=== PATIENT | male | born 1950 | race Caucasian/White ===

== ENCOUNTER 2016-06-10 18:06 | Inpatient (IN) | payer MEDICARE ==
[~2016-06-10] VITALS: Ht 170.2 cm; Wt 92.3 kg
[~2016-06-10 18:06] MED LIST: CATAPRES 0.1MG0.1 MG PO; CETIRIZINE HCL10 MG PO; COREG 3.125M3.125 MG PO; DALIRESP500 MCG PO; FAMOTIDINE40 MG PO; IMDUR ER TAB 3030 MG PO; LANTUS100 UNIT/1 SQ; LO-DOSE ASPIRIN81 MG PO; NOVOLIN R100 UNIT/1 INJ; OMEGA 3 1,0001 EACH PO; POTASSIUM99 M1 PO; PROTONIX40 MG PO; SIMVASTATIN20 MG PO; SINGULAIR10 MG PO; TRAZODONE HCL100 MG PO; VICTOZA 3-0.6 MG/0.1 SQ; ZESTRIL10 MG PO
[2016-06-10 20:09] LABS: HEMOGLOBIN 12.4 gm/dl (14.0-17.5); RED BLOOD COUNT 4.3 M/UL (4.20-5.50); WHITE BLOOD COUNT 7.9 K/UL (4.5-11.0)
[2016-06-11] MEDS ORDERED: LANTUS100 UNIT/1 SQ (03:09)
[2016-06-11] MEDS ORDERED: VENTOLIN/PROVE0.5 ML INH (03:09)
[2016-06-11] MEDS ORDERED: NOVOLOG 10100 UNITS/ INJ (03:10)
[2016-06-12 06:47] LABS: RED BLOOD COUNT 4.2 M/UL (4.20-5.50); WHITE BLOOD COUNT 9.2 K/UL (4.5-11.0)
[2016-06-13 06:17] LABS: HEMOGLOBIN 12.3 gm/dl (14.0-17.5); RED BLOOD COUNT 4.29 M/UL (4.20-5.50); WHITE BLOOD COUNT 9.1 K/UL (4.5-11.0)
[2016-06-14 05:08] LABS: HEMOGLOBIN 12.4 gm/dl (14.0-17.5); RED BLOOD COUNT 4.34 M/UL (4.20-5.50); WHITE BLOOD COUNT 8.8 K/UL (4.5-11.0)
[2016-06-14] MEDS ORDERED: ELIQUIS5 MG PO (21:43)
[2016-06-14] MEDS ORDERED: VIBRAMYCIN 100100 MG PO (21:45)
[2016-06-14] MEDS ORDERED: HYDRALAZINE HCL25 MG PO (21:46)
[2016-06-14] MEDS ORDERED: IMDUR ER TAB 3030 MG PO (21:48)
[2016-06-14] MEDS ORDERED: SOTALOL80 MG PO (21:50)
[2016-06-14] MEDS ORDERED: CRESTOR10 MG PO (21:50)
[2016-06-14] MEDS ORDERED: TESSALON PERLE100 MG PO (21:51)
[2016-06-14] MEDS ORDERED: NITROSTAT0.4 MG SL (21:52)
[2016-11-19] MEDS ORDERED: CORDARONE 200M200 MG PO (23:37)
[2016-11-19] MEDS ORDERED: ALDACTONE25 MG PO (23:57)
[2016-11-19] MEDS ORDERED: LISINOPRIL10 MG PO (23:58)
[2017-01-14] MEDS ORDERED: NORVASC 5 MG TAB5 MG PO ×2 (04:16→04:24)
[2017-01-14] MEDS ORDERED: ASPIRIN EC81 MG PO (04:17)
[2017-01-14] MEDS ORDERED: BUMETANIDE2 MG PO ×2 (04:18→04:25)
[2017-01-14] MEDS ORDERED: BUMETANIDE1 MG PO (04:18)
[2017-01-14] MEDS ORDERED: CETIRIZINE HCL10 MG PO (04:19)
[2017-01-14] MEDS ORDERED: CRESTOR20 MG PO (04:19)
[2017-01-14] MEDS ORDERED: ISOSORBIDE MONO60 MG PO (04:21)
[2017-01-14] MEDS ORDERED: POTASSIUM CHLO20 ME1 PO (04:21)
[2017-01-14] MEDS ORDERED: LORTAB 5-325 M1 EACH PO (04:22)
[2017-01-14] MEDS ORDERED: LEVEMIR100 UNIT/1 SQ (13:45)
== END 2016-06-14 22:30 | disposition home or self-care (01) | DRG 191 ==
LOC: ER1 18:06 → M/S 06-11 00:45 → ZEROF 06-11 00:45 → M/S 06-11 02:47
PROVIDERS: Emergency Medicine; Family Medicine; Physician Assistant Medical; ADMIT Internal Medicine
DX: J44.0 Chronic obstructive pulmonary disease with (acute) lower respiratory infection (principal); I25.110 Atherosclerotic heart disease of native coronary artery with unstable angina pectoris; I48.0 Paroxysmal atrial fibrillation; I12.9 Hypertensive chronic kidney disease with stage 1 through stage 4 chronic kidney disease, or unspecified chronic kidney disease; N18.3 Chronic kidney disease, stage 3 (moderate); J20.9 Acute bronchitis, unspecified; E11.9 Type 2 diabetes mellitus without complications; E78.5 Hyperlipidemia, unspecified; D69.6 Thrombocytopenia, unspecified; K21.9 Gastro-esophageal reflux disease without esophagitis; G89.29 Other chronic pain; M54.5 Low back pain; E66.9 Obesity, unspecified; Z87.891 Personal history of nicotine dependence; Z86.73 Personal history of transient ischemic attack (TIA), and cerebral infarction without residual deficits; Z68.32 Body mass index [BMI] 32.0-32.9, adult; Z79.4 Long term (current) use of insulin; Z79.82 Long term (current) use of aspirin; Z79.899 Other long term (current) drug therapy; Z91.018 Allergy to other foods; Z82.49 Family history of ischemic heart disease and other diseases of the circulatory system; Z83.3 Family history of diabetes mellitus; Z84.1 Family history of disorders of kidney and ureter
CPT/HCPCS: ECHO; 36415; 71020; 78452; 80048; 80053; 80061; 82550; 82553; 82962; 83036; 83735; 83874; 83880; 84439; 84443; 84481; 84484; 85025; 85027; 85379; 86140; 93005; 93017; 93306; 94640; 99285; A9502; G0378; J1650; J1956; J2785; J7050; Q9963

== ENCOUNTER 2016-06-20 12:54 | Emergency (ER) | payer MEDICARE ==
[~2016-06-20 12:54] MED LIST changes: +CRESTOR10 MG PO; +ELIQUIS5 MG PO; +HYDRALAZINE HCL25 MG PO; +NITROSTAT0.4 MG SL; +NOVOLOG 10100 UNITS/ INJ; +SOTALOL80 MG PO; +TESSALON PERLE100 MG PO; +VENTOLIN/PROVE0.5 ML INH; +VIBRAMYCIN 100100 MG PO
[2016-06-20 14:37] LABS: HEMOGLOBIN 11.9 gm/dl (14.0-17.5); RED BLOOD COUNT 4.17 M/UL (4.20-5.50); WHITE BLOOD COUNT 8.5 K/UL (4.5-11.0)
[2016-11-19] MEDS ORDERED: CORDARONE 200M200 MG PO (23:37)
[2016-11-19] MEDS ORDERED: ALDACTONE25 MG PO (23:57)
[2016-11-19] MEDS ORDERED: LISINOPRIL10 MG PO (23:58)
[2017-01-14] MEDS ORDERED: NORVASC 5 MG TAB5 MG PO ×2 (04:16→04:24)
[2017-01-14] MEDS ORDERED: ASPIRIN EC81 MG PO (04:17)
[2017-01-14] MEDS ORDERED: BUMETANIDE1 MG PO (04:18)
[2017-01-14] MEDS ORDERED: BUMETANIDE2 MG PO ×2 (04:18→04:25)
[2017-01-14] MEDS ORDERED: CETIRIZINE HCL10 MG PO (04:19)
[2017-01-14] MEDS ORDERED: CRESTOR20 MG PO (04:19)
[2017-01-14] MEDS ORDERED: ISOSORBIDE MONO60 MG PO (04:21)
[2017-01-14] MEDS ORDERED: POTASSIUM CHLO20 ME1 PO (04:21)
[2017-01-14] MEDS ORDERED: LORTAB 5-325 M1 EACH PO (04:22)
[2017-01-14] MEDS ORDERED: LEVEMIR100 UNIT/1 SQ (13:45)
== END 2016-06-20 18:30 | disposition home or self-care (01) ==
LOC: ER1 12:54
PROVIDERS: Emergency Medicine
DX: R06.00 Dyspnea, unspecified (principal); Z86.79 Personal history of other diseases of the circulatory system; Z79.82 Long term (current) use of aspirin; Z79.01 Long term (current) use of anticoagulants; Z79.899 Other long term (current) drug therapy
CPT/HCPCS: 36415; 36600; 71010; 78582; 80053; 82550; 82553; 82803; 83874; 83880; 84484; 85025; 85610; 85730; 93005; 99285; A9540; A9567

== ENCOUNTER 2016-06-26 16:48 | Inpatient (IN) | payer MEDICARE ==
[~2016-06-26] VITALS: Ht 170.2 cm; Wt 96.8 kg
[2016-06-26 20:16] LABS: HEMOGLOBIN 12.7 gm/dl (14.0-17.5); RED BLOOD COUNT 4.36 M/UL (4.20-5.50); WHITE BLOOD COUNT 8.9 K/UL (4.5-11.0)
[2016-06-26] MEDS ORDERED: PROTONIX40 MG PO (23:51)
[2016-06-26] MEDS ORDERED: NOVOLOG 10100 UNITS1 SQ (23:52)
[2016-06-30 06:01] LABS: HEMOGLOBIN 11.5 gm/dl (14.0-17.5); RED BLOOD COUNT 4.01 M/UL (4.20-5.50); WHITE BLOOD COUNT 11.6 K/UL (4.5-11.0)
[2016-11-19] MEDS ORDERED: CORDARONE 200M200 MG PO (23:37)
[2016-11-19] MEDS ORDERED: ALDACTONE25 MG PO (23:57)
[2016-11-19] MEDS ORDERED: LISINOPRIL10 MG PO (23:58)
[2017-01-14] MEDS ORDERED: NORVASC 5 MG TAB5 MG PO ×2 (04:16→04:24)
[2017-01-14] MEDS ORDERED: ASPIRIN EC81 MG PO (04:17)
[2017-01-14] MEDS ORDERED: BUMETANIDE1 MG PO (04:18)
[2017-01-14] MEDS ORDERED: BUMETANIDE2 MG PO ×2 (04:18→04:25)
[2017-01-14] MEDS ORDERED: CETIRIZINE HCL10 MG PO (04:19)
[2017-01-14] MEDS ORDERED: CRESTOR20 MG PO (04:19)
[2017-01-14] MEDS ORDERED: POTASSIUM CHLO20 ME1 PO (04:21)
[2017-01-14] MEDS ORDERED: ISOSORBIDE MONO60 MG PO (04:21)
[2017-01-14] MEDS ORDERED: LORTAB 5-325 M1 EACH PO (04:22)
[2017-01-14] MEDS ORDERED: LEVEMIR100 UNIT/1 SQ (13:45)
== END 2016-06-30 18:15 | disposition home or self-care (01) | DRG 287 ==
LOC: ER1 16:48 → ZEROF 21:15 → MED SURG 4 21:15
PROVIDERS: Internal Medicine; Internal Medicine Nephrology; Nurse Practitioner; Physician Assistant; Physician Assistant Medical; ADMIT Family Medicine
PROC: 4A023N7 Measurement of Cardiac Sampling and Pressure, Left Heart, Percutaneous Approach (ICD-10-PCS; principal; 2016-06-29)
PROC: B2111ZZ Fluoroscopy of Multiple Coronary Arteries using Low Osmolar Contrast (ICD-10-PCS; 2016-06-29)
DX: I25.110 Atherosclerotic heart disease of native coronary artery with unstable angina pectoris (principal); N17.9 Acute kidney failure, unspecified; I13.0 Hypertensive heart and chronic kidney disease with heart failure and stage 1 through stage 4 chronic kidney disease, or unspecified chronic kidney disease; I50.32 Chronic diastolic (congestive) heart failure; I16.9 Hypertensive crisis, unspecified; N18.3 Chronic kidney disease, stage 3 (moderate); E11.21 Type 2 diabetes mellitus with diabetic nephropathy; E11.65 Type 2 diabetes mellitus with hyperglycemia; J44.9 Chronic obstructive pulmonary disease, unspecified; I48.0 Paroxysmal atrial fibrillation; R00.1 Bradycardia, unspecified; E78.5 Hyperlipidemia, unspecified; K21.9 Gastro-esophageal reflux disease without esophagitis; E66.9 Obesity, unspecified; Z87.891 Personal history of nicotine dependence; Z79.01 Long term (current) use of anticoagulants; Z79.82 Long term (current) use of aspirin; Z79.4 Long term (current) use of insulin; Z79.899 Other long term (current) drug therapy; Z68.33 Body mass index [BMI] 33.0-33.9, adult; Z82.49 Family history of ischemic heart disease and other diseases of the circulatory system; Z83.3 Family history of diabetes mellitus; Z84.1 Family history of disorders of kidney and ureter
CPT/HCPCS: ECHO; 36415; 70450; 71020; 80048; 80053; 81001; 82043; 82550; 82553; 82570; 82962; 83874; 83880; 84156; 84484; 85025; 85027; 93005; 93306; 94640; 94664; 96374; 96375; 99285; C1769; G0378; J0583; J1644; J1940; J2250; J2930; J3010; Q9965

== ENCOUNTER 2016-07-04 13:16 | Emergency (ER) | payer MEDICARE ==
[~2016-07-04 13:16] MED LIST changes: +NOVOLOG 10100 UNITS1 SQ
[2016-07-04 20:08] LABS: RED BLOOD COUNT 4.19 M/UL (4.20-5.50); WHITE BLOOD COUNT 8.7 K/UL (4.5-11.0)
[2016-11-19] MEDS ORDERED: CORDARONE 200M200 MG PO (23:37)
[2016-11-19] MEDS ORDERED: ALDACTONE25 MG PO (23:57)
[2016-11-19] MEDS ORDERED: LISINOPRIL10 MG PO (23:58)
[2017-01-14] MEDS ORDERED: NORVASC 5 MG TAB5 MG PO ×2 (04:16→04:24)
[2017-01-14] MEDS ORDERED: ASPIRIN EC81 MG PO (04:17)
[2017-01-14] MEDS ORDERED: BUMETANIDE1 MG PO (04:18)
[2017-01-14] MEDS ORDERED: BUMETANIDE2 MG PO ×2 (04:18→04:25)
[2017-01-14] MEDS ORDERED: CRESTOR20 MG PO (04:19)
[2017-01-14] MEDS ORDERED: CETIRIZINE HCL10 MG PO (04:19)
[2017-01-14] MEDS ORDERED: POTASSIUM CHLO20 ME1 PO (04:21)
[2017-01-14] MEDS ORDERED: ISOSORBIDE MONO60 MG PO (04:21)
[2017-01-14] MEDS ORDERED: LORTAB 5-325 M1 EACH PO (04:22)
[2017-01-14] MEDS ORDERED: LEVEMIR100 UNIT/1 SQ (13:45)
== END 2016-07-05 00:20 | disposition home or self-care (01) ==
LOC: ER1 13:16
PROVIDERS: Physician Assistant
DX: I13.0 Hypertensive heart and chronic kidney disease with heart failure and stage 1 through stage 4 chronic kidney disease, or unspecified chronic kidney disease (principal); I50.9 Heart failure, unspecified; N18.9 Chronic kidney disease, unspecified; E11.22 Type 2 diabetes mellitus with diabetic chronic kidney disease; J44.9 Chronic obstructive pulmonary disease, unspecified; I48.0 Paroxysmal atrial fibrillation; Z79.01 Long term (current) use of anticoagulants
CPT/HCPCS: 36415; 71010; 80053; 82550; 82553; 83874; 83880; 84443; 84484; 85025; 93005; 96374; 99283; J1940

== ENCOUNTER → 2016-07-08 | Outpatient (CLI) | payer MEDICARE ==
[~2016-07-08] MED LIST changes: +ALDACTONE25 MG PO; +ASPIRIN EC81 MG PO; +BUMETANIDE1 MG PO; +BUMETANIDE2 MG PO; +CORDARONE 200M200 MG PO; +CRESTOR20 MG PO; +ISOSORBIDE MONO60 MG PO; +LEVEMIR100 UNIT/1 SQ; +LISINOPRIL10 MG PO; +LORTAB 5-325 M1 EACH PO; +NORVASC 5 MG TAB5 MG PO; +POTASSIUM CHLO20 ME1 PO
== END ==
LOC: HEART 5 09:00
DX: I48.0 Paroxysmal atrial fibrillation (principal)

== ENCOUNTER → 2016-07-20 | Outpatient (CLI) | payer MEDICARE | LOC: HEART 5 13:43 | DX: I48.0 Paroxysmal atrial fibrillation (principal); Z79.899 Other long term (current) drug therapy; R94.2 Abnormal results of pulmonary function studies; Z87.891 Personal history of nicotine dependence | CPT/HCPCS: 94060; 94729 ==

== ENCOUNTER 2020-05-10 11:28 | Emergency (ER) | payer MEDICARE, OTHER ==
[~2020-05-10 11:28] MED LIST changes: +AMLODIPINE BESYL5 MG PO; +ANORO ELLIPTA1 EACH INH; +BROVANA15 MCG/2 M NEB; +BUMEX 1MG TABLET1 MG PO; +CEPHALEXIN500 MG PO; -CRESTOR20 MG PO; +FEOSOL325 MG PO; +FERROUS SULFAT325 M2 PO; +HUMALOG 10100 UNITS/ SC; +HYDRALAZINE HCL50 MG PO; +IPRAT-ALBUT 0.5-3 ML NEB; +K-DUR TAB 20 M20 MEQ PO; +LANTUS SOL100 UNIT/1 SQ; +LASIX40 MG PO; +LOPRESSOR 25 MG25 MG PO; +MEDROL4 MG PO; +NITROGLYCERIN0.4 MG SL; +NORVASC5 MG PO; +PREDNISONE 50 M50 MG PO; +PRINIVIL10 MG PO; +RANEXA500 MG PO; +TAMIFLU 75 MG C75 MG PO; +THERATRUM COMP1 EACH PO; -TRAZODONE HCL100 MG PO; +TYLENOL COLD M1 EACH PO; +VIBRAMYCIN100 MG PO
[2020-05-10 12:22] LABS: RED BLOOD COUNT 4.23 M/UL (4.20-5.50); WHITE BLOOD COUNT 10.1 K/UL (4.5-11.0)
[2020-05-11] MEDS ORDERED: NORVASC5 MG PO (22:40)
[2020-05-11] MEDS ORDERED: BUSPIRONE HCL7.5 MG PO (22:40)
[2020-05-11] MEDS ORDERED: AMOX TR-K CLV1 EAC4 PO (22:46)
[2020-05-11] MEDS ORDERED: HYDROCODON-ACE1 EAC2 PO (22:48)
[2020-05-11] MEDS ORDERED: PACERONE200 MG PO (22:54)
[2020-05-11] MEDS ORDERED: VITAMIN D21250 MCG PO (22:58)
[2020-08-08] MEDS ORDERED: BUMETANIDE2 MG PO (22:27)
[2020-10-09] MEDS ORDERED: LEVOFLOXACIN500 MG PO (15:18)
[2020-10-12] MEDS ORDERED: CRESTOR20 MG PO (04:19)
[2020-10-12] MEDS ORDERED: DESYREL 50 MG T50 MG PO (08:53)
== END 2020-05-11 04:59 | disposition left against medical advice (07) ==
LOC: ER1 11:28 → ZEROF 14:20
PROVIDERS: Physician Assistant
DX: J18.9 Pneumonia, unspecified organism (principal); J96.01 Acute respiratory failure with hypoxia; J44.9 Chronic obstructive pulmonary disease, unspecified; I25.2 Old myocardial infarction; I13.0 Hypertensive heart and chronic kidney disease with heart failure and stage 1 through stage 4 chronic kidney disease, or unspecified chronic kidney disease; E11.22 Type 2 diabetes mellitus with diabetic chronic kidney disease; N18.30 Chronic kidney disease, stage 3 unspecified; I50.30 Unspecified diastolic (congestive) heart failure; I48.91 Unspecified atrial fibrillation; E66.2 Morbid (severe) obesity with alveolar hypoventilation; Z86.73 Personal history of transient ischemic attack (TIA), and cerebral infarction without residual deficits; Z99.89 Dependence on other enabling machines and devices; Z99.81 Dependence on supplemental oxygen; Z87.891 Personal history of nicotine dependence; Z79.01 Long term (current) use of anticoagulants; Z79.899 Other long term (current) drug therapy; Z53.20 Procedure and treatment not carried out because of patient's decision for unspecified reasons; Z20.822 Contact with and (suspected) exposure to COVID-19
CPT/HCPCS: 36600; 71045; 80053; 82550; 82553; 82803; 82962; 83874; 83880; 84484; 85025; 87040; 93005; 94640; 94664; 94760; J0456; J0696; J7030; U0002

== ENCOUNTER 2020-05-11 10:56 | Inpatient (IN) | payer MEDICARE, OTHER ==
[~2020-05-11] VITALS: Ht 170 cm; Wt 107.2 kg
[2020-05-11 13:28] LABS: HEMOGLOBIN 12.3 gm/dl (14.0-17.5); RED BLOOD COUNT 4.05 M/UL (4.20-5.50); WHITE BLOOD COUNT 11.5 K/UL (4.5-11.0)
[2020-05-11] MEDS ORDERED: NORVASC5 MG PO (22:40)
[2020-05-11] MEDS ORDERED: BUSPIRONE HCL7.5 MG PO (22:40)
[2020-05-11] MEDS ORDERED: AMOX TR-K CLV1 EAC4 PO (22:46)
[2020-05-11] MEDS ORDERED: HYDROCODON-ACE1 EAC2 PO (22:48)
[2020-05-11] MEDS ORDERED: PACERONE200 MG PO (22:54)
[2020-05-11] MEDS ORDERED: VITAMIN D21250 MCG PO (22:58)
[2020-05-12 04:58] LABS: HEMOGLOBIN 11.8 gm/dl (14.0-17.5); RED BLOOD COUNT 3.94 M/UL (4.20-5.50); WHITE BLOOD COUNT 10.5 K/UL (4.5-11.0)
[2020-05-13 08:41] LABS: HEMOGLOBIN 11.5 gm/dl (14.0-17.5); RED BLOOD COUNT 3.87 M/UL (4.20-5.50); WHITE BLOOD COUNT 12.9 K/UL (4.5-11.0)
--- NOTE | 2020-05-14 01:23 | NUR ---
0030- NO CHANGE FROM PREVIOUS 7P NURSING ASSESSMENT
[2020-05-15 03:48] LABS: HEMOGLOBIN 11.4 gm/dl (14.0-17.5); RED BLOOD COUNT 3.8 M/UL (4.20-5.50); WHITE BLOOD COUNT 11.5 K/UL (4.5-11.0)
[2020-05-16 05:09] LABS: HEMOGLOBIN 11.9 gm/dl (14.0-17.5); RED BLOOD COUNT 3.93 M/UL (4.20-5.50); WHITE BLOOD COUNT 11.5 K/UL (4.5-11.0)
[2020-05-17 10:52] LABS: HEMOGLOBIN 11.2 gm/dl (14.0-17.5); RED BLOOD COUNT 3.79 M/UL (4.20-5.50); WHITE BLOOD COUNT 11.7 K/UL (4.5-11.0)
--- NOTE | 2020-05-17 11:35 | NUR ---
PATIENT HAD EPISODE THIS MORNING OF HER PULSE OX GOING TO 78% WITH HIS HIGH FLOW O2 14L. INSTRUCTED TO PERFORM DEEP BREATHING EXERCISES WAS CHANGE TO AIRVO PER RT AND UP TO 98%. WILL CONTINUE TO MONITOR
[2020-05-18 05:55] LABS: HEMOGLOBIN 11.2 gm/dl (14.0-17.5); RED BLOOD COUNT 3.68 M/UL (4.20-5.50); WHITE BLOOD COUNT 12.1 K/UL (4.5-11.0)
--- NOTE | 2020-05-19 03:39 | NUR ---
Radiology called at this time. Informed me patient's CT of head negative.
[2020-05-20 04:28] LABS: HEMOGLOBIN 10.8 gm/dl (14.0-17.5); RED BLOOD COUNT 3.64 M/UL (4.20-5.50); WHITE BLOOD COUNT 7.6 K/UL (4.5-11.0)
[2020-05-22 06:47] LABS: RED BLOOD COUNT 3.7 M/UL (4.20-5.50)
[2020-05-22] MEDS ORDERED: AMLODIPINE BESYL5 MG PO (13:52)
[2020-05-22] MEDS ORDERED: PREDNISONE 10 M10 MG PO (13:52)
[2020-05-22] MEDS ORDERED: GLUCERNA237 ML PO (13:52)
[2020-05-22 22:09] LABS: ASPERGILLUS FLAVUS Negative (Neg:<1:1); ASPERGILLUS FUMIGATUS Negative (Neg:<1:1); ASPERGILLUS NIGER Negative (Neg:<1:1)
[2020-08-08] MEDS ORDERED: BUMETANIDE2 MG PO (22:27)
[2020-10-09] MEDS ORDERED: LEVOFLOXACIN500 MG PO (15:18)
[2020-10-12] MEDS ORDERED: CRESTOR20 MG PO (04:19)
[2020-10-12] MEDS ORDERED: DESYREL 50 MG T50 MG PO (08:53)
== END 2020-05-22 15:49 | disposition home or self-care (01) | DRG 291 ==
LOC: ER1 10:56 → ZEROF 15:18 → M/S 15:18 → 2 EAST 15:18 → M/S 05-13 22:19
PROVIDERS: Family Medicine; Internal Medicine; Internal Medicine Infectious Disease; Internal Medicine Pulmonary Disease; Physician Assistant; Physician Assistant Medical; ADMIT Internal Medicine
DX: I13.0 Hypertensive heart and chronic kidney disease with heart failure and stage 1 through stage 4 chronic kidney disease, or unspecified chronic kidney disease (principal); J96.21 Acute and chronic respiratory failure with hypoxia; I50.33 Acute on chronic diastolic (congestive) heart failure; J18.9 Pneumonia, unspecified organism; J96.02 Acute respiratory failure with hypercapnia; E66.2 Morbid (severe) obesity with alveolar hypoventilation; N17.9 Acute kidney failure, unspecified; J84.89 Other specified interstitial pulmonary diseases; I48.0 Paroxysmal atrial fibrillation; E11.22 Type 2 diabetes mellitus with diabetic chronic kidney disease; Z20.822 Contact with and (suspected) exposure to COVID-19; D63.1 Anemia in chronic kidney disease; N18.30 Chronic kidney disease, stage 3 unspecified; Z79.01 Long term (current) use of anticoagulants; Z79.899 Other long term (current) drug therapy; Z79.82 Long term (current) use of aspirin; Z87.891 Personal history of nicotine dependence; Z86.73 Personal history of transient ischemic attack (TIA), and cerebral infarction without residual deficits; E87.6 Hypokalemia; Z68.36 Body mass index [BMI] 36.0-36.9, adult
CPT/HCPCS: 36415; 36600; 70450; 71045; 71250; 80048; 80053; 82550; 82553; 82803; 82962; 83605; 83735; 83874; 83880; 84132; 84484; 85025; 85027; 86140; 86606; 86612; 87040; 87070; 87081; 87205; 90471; 93005; 94640; 94660; 94664; 94668; 94760; 96365; 96367; 96372; 96374; 96375; 96376; 97116-GP-CQ; 97161; 99285; J0456; J0696; J1120; J1205; J1940; J2020; J2185; J2930; J7030; U0002

== ENCOUNTER → 2020-05-28 | Outpatient (CLI) | payer MEDICARE, OTHER ==
[~2020-05-28] MED LIST changes: +ACETAZOLAMIDE500 MG PO; +ALDACTAZIDE 251 EACH PO; +AMIODARONE HCL200 MG PO; +AMOX TR-K CLV1 EAC4 PO; +AUGMENTIN 875-1 EACH PO; +BUSPIRONE HCL7.5 MG PO; +CRESTOR20 MG PO; +DESYREL 50 MG T50 MG PO; +ENDOCET 5-3251 EACH PO; +FLONASE ALLER15.8 ML; +GLUCERNA237 ML PO; +HYDROCODON-ACE1 EAC2 PO; +LEVOFLOXACIN500 MG PO; +LIDOCAINE1 EAC1 TP; +LOVAZA1 GM PO; +MELATONIN5 M2 PO; +PACERONE200 MG PO; +PREDNISONE 10 M10 MG PO; +PROTONIX 40 MG40 M1 PO; +SERTRALINE HCL50 MG PO; +VITAMIN D21250 MCG PO
== END ==
LOC: RAD 13:53
DX: J44.9 Chronic obstructive pulmonary disease, unspecified (principal); J18.9 Pneumonia, unspecified organism; R91.8 Other nonspecific abnormal finding of lung field
CPT/HCPCS: 71046

== ENCOUNTER 2020-06-10 20:11 | Emergency (ER) | payer MEDICARE, OTHER ==
[~2020-06-10 20:11] MED LIST changes: -ACETAZOLAMIDE500 MG PO; -ALDACTAZIDE 251 EACH PO; -AMIODARONE HCL200 MG PO; -AUGMENTIN 875-1 EACH PO; -CRESTOR20 MG PO; -DESYREL 50 MG T50 MG PO; -ENDOCET 5-3251 EACH PO; -FLONASE ALLER15.8 ML; -LEVOFLOXACIN500 MG PO; -LIDOCAINE1 EAC1 TP; -LOVAZA1 GM PO; -MELATONIN5 M2 PO; -PROTONIX 40 MG40 M1 PO; -SERTRALINE HCL50 MG PO
[2020-06-10 21:22] LABS: RED BLOOD COUNT 3.77 M/UL (4.20-5.50); WHITE BLOOD COUNT 6.4 K/UL (4.5-11.0)
[2020-06-10 21:48] LABS: BUN/CREATININE RATIO 14 (0-10)
[2020-08-08] MEDS ORDERED: BUMETANIDE2 MG PO (22:27)
[2020-10-09] MEDS ORDERED: LEVOFLOXACIN500 MG PO (15:18)
[2020-10-12] MEDS ORDERED: CRESTOR20 MG PO (04:19)
[2020-10-12] MEDS ORDERED: DESYREL 50 MG T50 MG PO (08:53)
== END 2020-06-11 00:30 | disposition home or self-care (01) ==
LOC: ER1 20:11
PROVIDERS: Physician Assistant
DX: I13.0 Hypertensive heart and chronic kidney disease with heart failure and stage 1 through stage 4 chronic kidney disease, or unspecified chronic kidney disease (principal); I50.30 Unspecified diastolic (congestive) heart failure; N18.9 Chronic kidney disease, unspecified; E66.9 Obesity, unspecified; E11.22 Type 2 diabetes mellitus with diabetic chronic kidney disease; I48.91 Unspecified atrial fibrillation; Z86.73 Personal history of transient ischemic attack (TIA), and cerebral infarction without residual deficits
CPT/HCPCS: 70450; 71045; 80053; 81001; 82550; 82553; 83690; 83874; 84484; 85025; 93005; 96374; 99285

== ENCOUNTER 2020-08-03 15:34 | Emergency (ER) | payer MEDICARE, OTHER ==
[2020-08-03 18:02] LABS: HEMOGLOBIN 14.2 gm/dl (14.0-17.5); RED BLOOD COUNT 4.93 M/UL (4.20-5.50); WHITE BLOOD COUNT 8.6 K/UL (4.5-11.0)
[2020-08-03] MEDS ORDERED: ENDOCET 5-3251 EACH PO (20:15)
[2020-08-03] MEDS ORDERED: AUGMENTIN 875-1 EACH PO (20:30)
[2020-08-08] MEDS ORDERED: BUMETANIDE2 MG PO (22:27)
[2020-10-09] MEDS ORDERED: LEVOFLOXACIN500 MG PO (15:18)
[2020-10-12] MEDS ORDERED: CRESTOR20 MG PO (04:19)
[2020-10-12] MEDS ORDERED: DESYREL 50 MG T50 MG PO (08:53)
== END 2020-08-03 20:35 | disposition home or self-care (01) ==
LOC: ER1 15:34
PROVIDERS: Physician Assistant Medical
DX: S02.40DA Maxillary fracture, left side, initial encounter for closed fracture (principal); S02.842A Fracture of lateral orbital wall, left side, initial encounter for closed fracture; S01.81XA Laceration without foreign body of other part of head, initial encounter; W01.0XXA Fall on same level from slipping, tripping and stumbling without subsequent striking against object, initial encounter; I50.9 Heart failure, unspecified; I48.91 Unspecified atrial fibrillation; J44.9 Chronic obstructive pulmonary disease, unspecified; E11.22 Type 2 diabetes mellitus with diabetic chronic kidney disease; N18.30 Chronic kidney disease, stage 3 unspecified; Z23 Encounter for immunization
CPT/HCPCS: 70450; 70486; 71046; 72125; 80053; 85025; 85610; 90471; 90715; 93005; 96374; 96375; 99284; J2270; J2405

== ENCOUNTER 2020-10-12 10:06 | Inpatient (IN) | payer MEDICARE, OTHER ==
[~2020-10-12] VITALS: Ht 170.2 cm; Wt 82.6 kg
[~2020-10-12 10:06] MED LIST changes: +AUGMENTIN 875-1 EACH PO; +CRESTOR20 MG PO; +DESYREL 50 MG T50 MG PO; +ENDOCET 5-3251 EACH PO; +LEVOFLOXACIN500 MG PO
[2020-10-12 10:54] LABS: HEMOGLOBIN 15.4 gm/dl (14.0-17.5); RED BLOOD COUNT 5.19 M/UL (4.20-5.50); WHITE BLOOD COUNT 8.2 K/UL (4.5-11.0)
[2020-10-12 11:44] LABS: BUN/CREATININE RATIO 15 (0-10)
[2020-10-12] MEDS ORDERED: SERTRALINE HCL50 MG PO (13:54)
[2020-10-12] MEDS ORDERED: FLONASE ALLER15.8 ML (15:18)
[2020-10-12] MEDS ORDERED: ACETAZOLAMIDE500 MG PO (15:18)
[2020-10-12] MEDS ORDERED: LOVAZA1 GM PO (15:19)
[2020-10-12] MEDS ORDERED: AMIODARONE HCL200 MG PO (15:19)
[2020-10-12] MEDS ORDERED: NORVASC5 MG PO (15:19)
[2020-10-12] MEDS ORDERED: PROTONIX 40 MG40 M1 PO (15:20)
[2020-10-12] MEDS ORDERED: ALDACTAZIDE 251 EACH PO (15:22)
[2020-10-12] MEDS ORDERED: K-DUR TAB 20 M20 MEQ PO (15:23)
[2020-10-12] MEDS ORDERED: MELATONIN5 M2 PO (16:20)
[2020-10-12] MEDS ORDERED: LIDOCAINE1 EAC1 TP (16:20)
--- NOTE | 2020-10-12 21:18 | NUR ---
NOTIFIED MD OF HEART RATE OF 45. PT RESTING QUIETLY, FREE OF DISTRESS. WILL CONTINUE TO MONITOR.
[2020-10-12] MEDS ORDERED: RANEXA500 MG PO (23:01)
--- NOTE | 2020-10-13 00:27 | NUR ---
PT'S HEART RATE DECREASED TO [address] JUNG. PT RESTING QUIETLY FREE OF S/SX OF DISTRESS. V/S: BP 132/64, HR- 37, R-18, T-98.1, SAT- 97%. RECIEVED NO NEW ORDERS. WILL CONTINUE TO MONITOR.
[2020-10-13 05:53] LABS: WHITE BLOOD COUNT 7.3 K/UL (4.5-11.0)
[2020-10-13 05:54] LABS: HEMOGLOBIN 13.3 gm/dl (14.0-17.5); RED BLOOD COUNT 4.56 M/UL (4.20-5.50)
[2020-10-14] MEDS ORDERED: BUMETANIDE1 MG PO (16:20)
== END 2020-10-14 18:47 | disposition home or self-care (01) | DRG 683 ==
LOC: ER1 10:06 → MED SURG 4 14:29 → CDU 14:29 → MED SURG 4 19:15
PROVIDERS: Family Medicine; Internal Medicine Nephrology; Physician Assistant; ADMIT Internal Medicine
DX: N17.9 Acute kidney failure, unspecified (principal); J96.11 Chronic respiratory failure with hypoxia; I50.32 Chronic diastolic (congestive) heart failure; Z20.822 Contact with and (suspected) exposure to COVID-19; I13.0 Hypertensive heart and chronic kidney disease with heart failure and stage 1 through stage 4 chronic kidney disease, or unspecified chronic kidney disease; G45.9 Transient cerebral ischemic attack, unspecified; R29.6 Repeated falls; I45.81 Long QT syndrome; N18.30 Chronic kidney disease, stage 3 unspecified; E11.22 Type 2 diabetes mellitus with diabetic chronic kidney disease; E87.6 Hypokalemia; N28.1 Cyst of kidney, acquired; D69.6 Thrombocytopenia, unspecified; I48.0 Paroxysmal atrial fibrillation; G47.33 Obstructive sleep apnea (adult) (pediatric); J44.9 Chronic obstructive pulmonary disease, unspecified; T50.2X5A Adverse effect of carbonic-anhydrase inhibitors, benzothiadiazides and other diuretics, initial encounter; E66.9 Obesity, unspecified; Z68.28 Body mass index [BMI] 28.0-28.9, adult; Z79.01 Long term (current) use of anticoagulants; Z91.018 Allergy to other foods; Z82.49 Family history of ischemic heart disease and other diseases of the circulatory system; Z79.4 Long term (current) use of insulin; Z99.81 Dependence on supplemental oxygen; Y92.89 Other specified places as the place of occurrence of the external cause; Z87.891 Personal history of nicotine dependence; Z79.899 Other long term (current) drug therapy
CPT/HCPCS: ECHO; 36415; 70450; 70551; 71045; 80048; 80053; 82550; 82553; 82962; 83605; 83735; 83874; 84132; 84439; 84443; 84484; 85025; 93005; 93306; 93880; 97162; 97165; 99285; J7030; U0002

== ENCOUNTER 2021-08-31 11:17 | Inpatient (IN) | payer MEDICARE, OTHER ==
[~2021-08-31] VITALS: Ht 172.7 cm; Wt 107.5 kg
[~2021-08-31 11:17] MED LIST changes: +ACETAZOLAMIDE500 MG PO; +ALDACTAZIDE 251 EACH PO; +AMIODARONE HCL200 MG PO; +FLONASE ALLER15.8 ML; -HUMALOG 10100 UNITS/ SC; +LIDOCAINE1 EAC1 TP; +LOVAZA1 GM PO; +MELATONIN5 M2 PO; -NITROGLYCERIN0.4 MG SL; +NORVASC10 MG PO; +POTASSIUM CHLO10 MEQ PO; +PROTONIX 40 MG40 M1 PO; +SERTRALINE HCL100 MG PO
[2021-08-31 12:11] LABS: HEMOGLOBIN 12.2 gm/dl (14.0-17.5); RED BLOOD COUNT 4.04 M/UL (4.20-5.50); WHITE BLOOD COUNT 9.6 K/UL (4.5-11.0)
[2021-09-01 00:48] LABS: RED BLOOD COUNT 3.98 M/UL (4.20-5.50); WHITE BLOOD COUNT 8.6 K/UL (4.5-11.0)
[2021-09-01] MEDS ORDERED: BUMETANIDE1 MG PO (11:11)
[2021-09-01] MEDS ORDERED: CETIRIZINE HCL10 MG PO (11:19)
[2021-09-01] MEDS ORDERED: ASPIRIN EC81 MG PO (11:20)
[2021-09-01] MEDS ORDERED: LISINOPRIL10 MG PO (11:20)
[2021-09-01] MEDS ORDERED: TRULICITY1.5 MG/0.5 SQ (11:21)
[2021-09-01] MEDS ORDERED: UBRELVY100 MG PO (11:22)
[2021-09-01] MEDS ORDERED: MECLIZINE HCL12.5 MG PO (11:22)
[2021-09-01] MEDS ORDERED: LOSARTAN POTASS25 MG PO (11:23)
[2021-09-01] MEDS ORDERED: ALBUTEROL2.5 MG/3 M INH (11:24)
[2021-09-01] MEDS ORDERED: NITROGLYCERIN0.4 MG SL (13:51)
[2021-09-01] MEDS ORDERED: OMEGA-3 FISH1000 MG PO (14:01)
[2021-09-01] MEDS ORDERED: HUMALOG 10100 UNITS/ SC (19:31)
[2021-09-02 05:05] LABS: HEMOGLOBIN 12.8 gm/dl (14.0-17.5); RED BLOOD COUNT 4.26 M/UL (4.20-5.50)
--- NOTE | 2021-09-03 11:27 | NUR ---
PT UP TO CHAIR. PT OXYGEN DROPPED TO 86%. GOT ORDER FROM MD FOR O2 AT 2 L N.C O2 UP TO 92% ONCE OXYGEN ON.
[2021-09-04 06:20] LABS: HEMOGLOBIN 11.4 gm/dl (14.0-17.5)
[2021-09-04 06:24] LABS: RED BLOOD COUNT 3.8 M/UL (4.20-5.50)
[2021-09-04] MEDS ORDERED: ALDACTONE 25MG25 MG PO (10:34)
[2021-09-04] MEDS ORDERED: AMIODARONE HCL200 MG PO (10:38)
== END 2021-09-04 12:56 | disposition home or self-care (01) | DRG 291 ==
LOC: ER1 11:17 → MED SURG 4 15:31 → CDU 15:31 → MED SURG 4 21:18
PROVIDERS: Physician Assistant; Physician Assistant Medical; ADMIT Internal Medicine
DX: I13.0 Hypertensive heart and chronic kidney disease with heart failure and stage 1 through stage 4 chronic kidney disease, or unspecified chronic kidney disease (principal); I50.33 Acute on chronic diastolic (congestive) heart failure; Z20.822 Contact with and (suspected) exposure to COVID-19; J96.21 Acute and chronic respiratory failure with hypoxia; N18.4 Chronic kidney disease, stage 4 (severe); J98.11 Atelectasis; I47.1 Supraventricular tachycardia; E66.2 Morbid (severe) obesity with alveolar hypoventilation; E87.3 Alkalosis; K21.9 Gastro-esophageal reflux disease without esophagitis; E87.6 Hypokalemia; J44.9 Chronic obstructive pulmonary disease, unspecified; D69.6 Thrombocytopenia, unspecified; E78.5 Hyperlipidemia, unspecified; I48.0 Paroxysmal atrial fibrillation; E11.22 Type 2 diabetes mellitus with diabetic chronic kidney disease; Z79.01 Long term (current) use of anticoagulants; Z79.82 Long term (current) use of aspirin; Z99.81 Dependence on supplemental oxygen; Z86.73 Personal history of transient ischemic attack (TIA), and cerebral infarction without residual deficits; Z79.4 Long term (current) use of insulin; Z91.010 Allergy to peanuts; Z91.018 Allergy to other foods; Z82.49 Family history of ischemic heart disease and other diseases of the circulatory system; Z87.891 Personal history of nicotine dependence; Z98.890 Other specified postprocedural states; Z91.11 Patient's noncompliance with dietary regimen; Z84.1 Family history of disorders of kidney and ureter; Z80.9 Family history of malignant neoplasm, unspecified; Z68.37 Body mass index [BMI] 37.0-37.9, adult
CPT/HCPCS: 36415; 71045; 80048; 80053; 81001; 82550; 82553; 82570; 82962; 83735; 83880; 84132; 84156; 84484; 85025; 85027; 93005; 94640; 94664; 94760; 96374; 96375; 96376; 99285; G0378; J1120; J1205; J1335; J1940; J7030; P9047

== ENCOUNTER 2021-11-07 19:57 | Emergency (ER) | payer MEDICARE, OTHER ==
[~2021-11-07 19:57] MED LIST changes: +ALBUTEROL2.5 MG/3 M INH; +ALDACTONE 25MG25 MG PO; +HUMALOG 10100 UNITS/ SC; +LOSARTAN POTASS25 MG PO; +MECLIZINE HCL12.5 MG PO; +NITROGLYCERIN0.4 MG SL; +OMEGA-3 FISH1000 MG PO; +TRULICITY1.5 MG/0.5 SQ; +UBRELVY100 MG PO
[2021-11-07 20:55] LABS: HEMOGLOBIN 12.8 gm/dl (14.0-17.5); RED BLOOD COUNT 4.27 M/UL (4.20-5.50); WHITE BLOOD COUNT 10.4 K/UL (4.5-11.0)
== END 2021-11-08 00:41 | disposition left against medical advice (07) ==
LOC: ER1 19:57
PROVIDERS: Physician Assistant
DX: R07.9 Chest pain, unspecified (principal); R06.02 Shortness of breath; I48.91 Unspecified atrial fibrillation; J44.9 Chronic obstructive pulmonary disease, unspecified; I13.0 Hypertensive heart and chronic kidney disease with heart failure and stage 1 through stage 4 chronic kidney disease, or unspecified chronic kidney disease; I50.9 Heart failure, unspecified; E11.22 Type 2 diabetes mellitus with diabetic chronic kidney disease; Z79.01 Long term (current) use of anticoagulants
CPT/HCPCS: 71045; 80053; 82550; 82553; 83880; 84484; 85025; 93005; 99283

== ENCOUNTER 2021-11-09 04:31 | Emergency (ER) | payer MEDICARE, OTHER ==
[~2021-11-09 04:31] MED LIST changes: -COZAAR 25MG TAB25 MG PO; -HYDROCODON-ACE1 EAC4 PO; -TRAZODONE HCL50 MG PO
[2021-11-09 05:11] LABS: HEMOGLOBIN 12.9 gm/dl (14.0-17.5); RED BLOOD COUNT 4.34 M/UL (4.20-5.50); WHITE BLOOD COUNT 12.3 K/UL (4.5-11.0)
[2021-11-10] MEDS ORDERED: TRAZODONE HCL50 MG PO (09:34)
[2021-11-10] MEDS ORDERED: HYDROCODON-ACE1 EAC4 PO (09:37)
== END 2021-11-09 06:50 | disposition home or self-care (01) ==
LOC: ER1 04:31
DX: I13.0 Hypertensive heart and chronic kidney disease with heart failure and stage 1 through stage 4 chronic kidney disease, or unspecified chronic kidney disease (principal); I50.30 Unspecified diastolic (congestive) heart failure; N18.9 Chronic kidney disease, unspecified; I48.20 Chronic atrial fibrillation, unspecified; G47.33 Obstructive sleep apnea (adult) (pediatric); E11.22 Type 2 diabetes mellitus with diabetic chronic kidney disease; J44.9 Chronic obstructive pulmonary disease, unspecified; Z86.73 Personal history of transient ischemic attack (TIA), and cerebral infarction without residual deficits; Z79.01 Long term (current) use of anticoagulants; Z20.822 Contact with and (suspected) exposure to COVID-19
CPT/HCPCS: 36415; 36600; 71045; 80053; 82550; 82553; 82803; 83880; 84484; 85025; 93005; 96374; 99285; U0002

== ENCOUNTER 2021-11-09 21:13 | Inpatient (IN) | payer MEDICARE, OTHER ==
[~2021-11-09] VITALS: Ht 170.2 cm; Wt 108.2 kg
[2021-11-09 22:25] LABS: HEMOGLOBIN 12.9 gm/dl (14.0-17.5); RED BLOOD COUNT 4.33 M/UL (4.20-5.50); WHITE BLOOD COUNT 12.3 K/UL (4.5-11.0)
[2021-11-10 07:15] LABS: HEMOGLOBIN 13.2 gm/dl (14.0-17.5); RED BLOOD COUNT 4.54 M/UL (4.20-5.50); WHITE BLOOD COUNT 14.1 K/UL (4.5-11.0)
[2021-11-10] MEDS ORDERED: TRAZODONE HCL50 MG PO (09:34)
[2021-11-10] MEDS ORDERED: HYDROCODON-ACE1 EAC4 PO (09:37)
--- NOTE | 2021-11-11 01:06 | NUR ---
LATE ENTRY 0040 7.28.22 PATIENT STATES HE IS HAVING CHEST PAIN, PATIENT IS SHARP AND IS TO THE LEFT OF STERNUM, NO RADIATION, PATIENT STATES HE HAS HAD THIS PAIN IN THE PAST AND TAKES A NITRO FOR IT AND IT RESOLVES
--- NOTE | 2021-11-11 01:08 | NUR ---
LATE ENTRY 0050 7.28.22 GAVE PATIENT 0.4 MG SL NITRO, PATIENT STATES CHEST PAIN RESOLVED AND HE FEELS BETTER NOW, DENIES ANY ADDITIONAL COMPLAINTS AT THIS TIME
[2021-11-11] MEDS ORDERED: BUMETANIDE1 MG PO (11:54)
[2021-11-11] MEDS ORDERED: COZAAR 25MG TAB25 MG PO (11:54)
== END 2021-11-11 14:39 | disposition home or self-care (01) | DRG 291 ==
LOC: ER1 21:13 → CDU 11-10 02:06 → M/S 11-10 10:23
PROVIDERS: Internal Medicine Nephrology; Physician Assistant; ADMIT Internal Medicine
PROC: 5A09357 Assistance with Respiratory Ventilation, Less than 24 Consecutive Hours, Continuous Positive Airway Pressure (ICD-10-PCS; principal; 2021-11-10)
DX: I13.0 Hypertensive heart and chronic kidney disease with heart failure and stage 1 through stage 4 chronic kidney disease, or unspecified chronic kidney disease (principal); Z20.822 Contact with and (suspected) exposure to COVID-19; I50.33 Acute on chronic diastolic (congestive) heart failure; J96.21 Acute and chronic respiratory failure with hypoxia; J96.22 Acute and chronic respiratory failure with hypercapnia; N18.4 Chronic kidney disease, stage 4 (severe); I48.20 Chronic atrial fibrillation, unspecified; N17.9 Acute kidney failure, unspecified; E11.22 Type 2 diabetes mellitus with diabetic chronic kidney disease; N28.1 Cyst of kidney, acquired; I27.20 Pulmonary hypertension, unspecified; J44.9 Chronic obstructive pulmonary disease, unspecified; G47.33 Obstructive sleep apnea (adult) (pediatric); I48.0 Paroxysmal atrial fibrillation; Z86.73 Personal history of transient ischemic attack (TIA), and cerebral infarction without residual deficits; Z79.01 Long term (current) use of anticoagulants; Z91.010 Allergy to peanuts
CPT/HCPCS: 36415; 71045; 80048; 80053; 82550; 82553; 82570; 82962; 83880; 84156; 84484; 85025; 93005; 94660; 94664; 96374; 99285

== ENCOUNTER → 2021-11-09 | Outpatient (CLI) | payer MEDICARE, OTHER ==
[~2021-11-09] MED LIST changes: +COZAAR 25MG TAB25 MG PO; +HYDROCODON-ACE1 EAC4 PO; +TRAZODONE HCL50 MG PO
== END ==
LOC: HEART 5 11-08 14:30
DX: I50.30 Unspecified diastolic (congestive) heart failure (principal); I48.0 Paroxysmal atrial fibrillation; R00.1 Bradycardia, unspecified; I08.1 Rheumatic disorders of both mitral and tricuspid valves; I27.20 Pulmonary hypertension, unspecified
CPT/HCPCS: 93306

== ENCOUNTER 2021-11-16 17:58 | Observation (INO) | payer MEDICARE, OTHER ==
[~2021-11-16] VITALS: Ht 170.2 cm; Wt 104.8 kg
[~2021-11-16 17:58] MED LIST changes: +COZAAR 25MG TAB25 MG PO; +HYDROCODON-ACE1 EAC4 PO; +TRAZODONE HCL50 MG PO
[2021-11-16 18:45] LABS: HEMOGLOBIN 11.9 gm/dl (14.0-17.5); RED BLOOD COUNT 3.99 M/UL (4.20-5.50); WHITE BLOOD COUNT 7.6 K/UL (4.5-11.0)
[2021-11-17 05:03] LABS: HEMOGLOBIN 12.1 gm/dl (14.0-17.5); RED BLOOD COUNT 4.15 M/UL (4.20-5.50); WHITE BLOOD COUNT 7.4 K/UL (4.5-11.0)
--- NOTE | 2021-11-17 15:53 | NUR ---
RT NOTIFIED OF STAT EKG PT VIVIAN IN 30'S.
[2021-11-18 06:17] LABS: HEMOGLOBIN 12.5 gm/dl (14.0-17.5); RED BLOOD COUNT 4.21 M/UL (4.20-5.50); WHITE BLOOD COUNT 6.9 K/UL (4.5-11.0)
== END 2021-11-18 13:13 | disposition home or self-care (01) ==
LOC: ER1 17:58 → M/S 20:22 → CDU 20:22 → M/S 11-17 01:40
PROVIDERS: Internal Medicine; Physician Assistant; ADMIT Internal Medicine
DX: R07.89 Other chest pain (principal); I13.0 Hypertensive heart and chronic kidney disease with heart failure and stage 1 through stage 4 chronic kidney disease, or unspecified chronic kidney disease; E11.22 Type 2 diabetes mellitus with diabetic chronic kidney disease; N18.4 Chronic kidney disease, stage 4 (severe); I50.33 Acute on chronic diastolic (congestive) heart failure; I48.20 Chronic atrial fibrillation, unspecified; R00.1 Bradycardia, unspecified; J44.9 Chronic obstructive pulmonary disease, unspecified; G47.33 Obstructive sleep apnea (adult) (pediatric); J96.12 Chronic respiratory failure with hypercapnia; J96.11 Chronic respiratory failure with hypoxia; E78.5 Hyperlipidemia, unspecified; Z98.61 Coronary angioplasty status; Z79.01 Long term (current) use of anticoagulants; Z86.73 Personal history of transient ischemic attack (TIA), and cerebral infarction without residual deficits; Z87.891 Personal history of nicotine dependence; Z91.018 Allergy to other foods
CPT/HCPCS: 0240U; 36415; 71045; 80048; 80053; 82550; 82553; 82962; 83735; 83880; 84484; 85025; 85027; 93005; 94760; 99285; G0378